=== PATIENT | female | born 1945 | race Caucasian/White ===

== ENCOUNTER 2024-07-15 10:34 | Emergency (ER) | payer OTHER ==
[2024-07-15] MEDS ORDERED: ACETAMINOPHEN 500 MG TAB ONE ×2 (11:16→11:21)
--- NOTE | 2024-07-15 12:20 | RAD REPORT ---
EXAM: Knee Left 2 View INDICATION: Fall COMPARISON: None FINDINGS: No acute fracture. Left knee orthoplasty without hardware complication. No significant knee effusion. No significant focal degenerative changes. Other: N/A IMPRESSION: No acute osseous abnormality involving the imaged knee.
--- NOTE | 2024-07-15 12:20 | RAD REPORT ---
EXAM: Knee Right 2 View INDICATION: Fall COMPARISON: None FINDINGS: No acute fracture. Right knee arthroplasty. No hardware complication. No significant knee effusion. No significant focal degenerative changes. Other: N/A IMPRESSION: No acute osseous abnormality involving the imaged knee.
--- NOTE | 2024-07-15 12:20 | RAD REPORT ---
EXAMINATION: Shoulder Left 2+ Views CLINICAL INDICATION: Female, 78 years old. Fall COMPARISON: No prior exam. FINDINGS: No acute fracture. No malalignment/dislocation. Moderate left AC joint degenerative changes with subacromial spurring. Mild left glenohumeral joint d egenerative changes. Other: n/a IMPRESSION: No acute osseous abnormality.
--- NOTE | 2024-07-15 12:21 | RAD REPORT ---
EXAMINATION: Wrist Left 2 View VIEWS: Two views CLINICAL INDICATION: Female, 78 years old. Fall COMPARISON: No prior exam. IMPRESSION: No acute fracture. No dislocation. No significant focal degenerative changes. Ulnar minus variance.
--- NOTE | 2024-07-15 12:21 | RAD REPORT ---
EXAMINATION: Ankle Right 2 View CLINICAL INDICATION: Female, 78 years old. Fall COMPARISON: No prior exam. FINDINGS: No acute fracture. No malalignment/dislocation. Plantar dorsal aspect calcaneal spurs. Mild spurring at the medial and lateral ankle joint. Other: n/a IMPRESSION: No acute osseous abnormality.
--- NOTE | 2024-07-15 12:21 | RAD REPORT ---
EXAMINATION: Ankle Left 2 View CLINICAL INDICATION: Female, 78 years old. Fall COMPARISON: No prior exam. FINDINGS: No acute fracture. No malalignment/dislocation. Plantar and dorsal aspect calcaneal spurs. Other: n/a IMPRESSION: No acute osseous abnormality.
--- NOTE | 2024-07-15 12:29 | RAD REPORT ---
EXAMINATION: C Spine Wo Con CLINICAL INDICATION: Female, 78 years old. PAIN TECHNIQUE: Axial CT images through the cervical spine were obtained without intravenous contrast. Sag ittal and coronal reformatted images were created from the data set. One or more of the following dose reduction techniques were used: Automated exposure control, adjustment of the mA and/or kV accor ding to patient size, and/or iterative reconstruction. Unless otherwise specified, incidental findings do not require dedicated imaging follow-up. [id number]. COMPARISON: No prior exam. FINDINGS: ALIGNMENT: Trace anterolisthesis of C4 on C5 and retrolisthesis of C5 on C6. BONE: Vertebral body heights are maintained. No aggressive osseous lesions. DEGENERATIVE: Multilevel cervical spondylosis with evidence of bilateral neural foraminal narrowing. No high grade central spinal stenosis. At least moderate neural foraminal narrowing is present at C4-5 on the left, C6-7 on the left, and C5-6 and C6-7 on the right. Mild central spinal stenosis is C 5-6. SOFT TISSUE: No significant abnormalities in the soft tissue of the neck. The visualized lung apices are clear. IMPRESSION: No acute cervical spine abnormalities. Cervical spondylosis.
--- NOTE | 2024-07-15 13:07 | ER ---
Nurse's Notes [facility] Name: Daisha Melgar Age: 78 yrs Sex: Female : 1945 Arrival Date: 07/15/2024 Time: 10:34 Bed 14 Private MD: Diagnosis: Fall (on) (from) unspecified stairs and steps;Pain in left wrist;Pain in left knee;Pain in right knee Presentation: 07/15 10:54 Chief complaint: Patient states: Fell forward one step. Complaining of pain to neck, cm10 bilateral legs and arms. Pt arrived ambulatory with steady gait. Coronavirus screen: Client denies travel out of the [place] in the last 14 days. Ebola Screen: Patient denies travel to an Ebola-affected area in the 21 days before illness onset. Initial Sepsis Screen: Does the patient meet any 2 criteria? No. Patient's initial sepsis screen is negative. Does the patient have a suspected source of infection? No. Patient's initial sepsis screen is negative. Risk Assessment: Do you want to hurt yourself or someone else? Patient reports no desire to harm self or others. Onset of symptoms was July 15, 2024. 10:54 Method Of Arrival: Ambulatory cm10 10:54 Acuity: EVI 3 cm10 Triage Assessment: 10:56 General: Appears in no apparent distress. comfortable, Behavior is calm, cooperative. cm10 Pain: Complains of pain in left arm, right leg, left leg and neck Pain currently is 7 out of 10 on a pain scale. Neuro: No deficits noted. Level of Consciousness is awake, alert, obeys commands, Oriented to person, place, time, situation, Appropriate for age. Respiratory: No deficits noted. Airway is patent Respiratory effort is even, unlabored, Respiratory pattern is regular, symmetrical. Musculoskeletal: Range of motion: intact in all extremities. Historical: - Allergies: 10:52 Codeine; cm10 - Home Meds: 10:52 Lasix 20 mg Oral tablet 1 tab daily for edema [Active]; methocarbamol 500 mg Oral cm10 tablet 3 times per day as needed [Active]; omeprazole 20 mg Oral tablet, delayed release (enteric coated) [Active]; - PMHx: 10:56 GERD; cm10 - PSHx: 10:52 Knee; cm10 - Immunization history:: Adult Immunizations unknown. - Infectious Disease History:: Denies. - Social history:: Smoking status: unknown. Screenin:57 [facility] ED Fall Risk Assessment (Adult) History of falling in the last 3 months, cm10 including since admission Yes- single mechanical fall (1 pt) Confusion or Disorientation No (0 pts) Intoxicated or Sedated No (0 pts) Impaired Gait No (0 pts) Mobility Assist Device Used No (0 pt) Altered Elimination No (0 pt) Score/Fall Risk Level 0 - 2 = Low Risk Oriented to surroundings, Maintained a safe environment, Hourly rounding (assess needs \T\ fall precautionary measures) done. Abuse screen: Denies threats or abuse. Denies injuries from another. Nutritional screening: No deficits noted. Tuberculosis screening: No symptoms or risk factors identified. Assessment: 13:02 Reassessment: Patient appears in no apparent distress at this time. Patient and/or cm10 family updated on plan of care and expected duration. Pain level reassessed. Patient is alert, oriented x 3, equal unlabored respirations, skin warm/dry/pink. Patient states symptoms have improved. Vital Signs: 10:54 BP 148 / 63; Pulse 87; Resp 15; Temp 98.4; Pulse Ox 97% on R/A; Weight 86.18 kg; Height cm10 5 ft. 4 in. ; Pain 7/10; 13:00 BP 154 / 78; Pulse 63; Resp 15; Pulse Ox 99% ; cm10 10:54 Body Mass Index 32.61 (86.18 kg, 162.56 cm) cm10 10:54 Pain Scale: Adult cm10 ED Course: 10:39 Patient arrived in ED. al6 10:41 Catalina Ryan MD is Attending Physician. gb1 10:42 Attending Physician role handed off by Catalina Ryan MD tw7 10:42 Javier Craig MD is Attending Physician. tw7 10:51 Judi Bess, JOSE is Primary Nurse. cm10 10:56 Triage completed. cm10 10:57 Arm band placed on right wrist. Patient placed in an exam room, on a stretcher. cm10 10:57 Patient has correct armband on for positive identification. Placed in gown. Bed in low cm10 position. Call light in reach. Side rails up X 1. Pulse ox on. NIBP on. 12:02 Wrist Left (2 View) XRAY In Process Unspecified. EDMS 12:02 Shoulder Left (2 View) XRAY In Process Unspecified. EDMS 12:02 Knee Left 2 View XRAY In Process Unspecified. EDMS 12:02 Knee Right 2 View XRAY In Process Unspecified. EDMS 12:02 Ankle Left 2 View XRAY In Process Unspecified. EDMS 12:02 Ankle Right 2 View XRAY In Process Unspecified. EDMS 12:02 C Spine W/O Contrast In Process Unspecified. EDMS 13:02 No provider procedures requiring assistance completed. Patient did not have IV access cm10 during this emergency room visit. 13:03 Provided Education on: Follow-up instructions. cm10 Administered Medications: 11:29 Drug: Acetaminophen PO 1000 mg PO once Route: PO; cm10 13:03 Follow up: Response: No adverse reaction cm10 Medication: 10:57 VIS not applicable for this client. cm10 Outcome: 13:03 Discharged to home ambulatory, with significant other, cm10 13:03 Condition: good 13:03 Discharge instructions given to patient, Instructed on discharge instructions, follow up and referral plans. Demonstrated understanding of instructions, follow-up care, 13:06 Discharge ordered by MD. eason 13:14 Patient left the ED. cm10 Signatures: Dispatcher [employer] Judi Mcmullen, JOSE RN cm10 Catalina Ryan MD MD gb1 Sharon Moody al6 Javier Craig MD MD tw7
--- NOTE | 2024-07-15 13:07 | EDPHYS ---
Physician Documentation [facility] Name: Daisha Melgar Age: 78 yrs Sex: Female : 1945 Arrival Date: 07/15/2024 Time: 10:34 Bed 14 Private MD: ED Physician Javier Craig HPI: 07/15 12:39 This 78 yrs old Female presents to ER via Ambulatory with complaints of Fall Injury. tw7 12:39 . 78-year-old female presents to the ED today with complaints of fall. Patient reports tw7 that she was walking up some steps and she tripped. Patient reports pain primarily to her left side after fall. She reports some neck pain, left shoulder pain, bilateral knee pain and bilateral ankle pain. Patient denies head trauma or loss of consciousness. She says she fell on outstretched hands. She states that she has been seen her primary care doctor for generalized paresthesias. She reports compliance with the medications that she has been taking Lasix for bilateral lower extremity swelling.. Historical: - Allergies: 10:52 Codeine; cm10 - Home Meds: 10:52 Lasix 20 mg Oral tablet 1 tab daily for edema [Active]; methocarbamol 500 mg Oral cm10 tablet 3 times per day as needed [Active]; omeprazole 20 mg Oral tablet, delayed release (enteric coated) [Active]; - PMHx: 10:56 GERD; cm10 - PSHx: 10:52 Knee; cm10 - Immunization history:: Adult Immunizations unknown. - Infectious Disease History:: Denies. - Social history:: Smoking status: unknown. ROS: 12:39 Constitutional: Negative for fever, chills, and weight loss, Eyes: Negative for injury, tw7 pain, redness, and discharge, ENT: Negative for injury, pain, and discharge, Neck: Negative for injury, pain, and swelling, Cardiovascular: Negative for chest pain, palpitations, and edema, Respiratory: Negative for shortness of breath, cough, wheezing, and pleuritic chest pain, Abdomen/GI: Negative for abdominal pain, nausea, vomiting, diarrhea, and constipation, Back: Negative for injury and pain, 12:39 Neuro: Negative for headache, weakness, numbness, tingling, and seizure, Psych: Negative for depression, anxiety, suicide ideation, homicidal ideation, and hallucinations, 12:39 MS/extremity: Positive for abrasion, pain, tenderness, Exam: 12:39 Constitutional: This is a well developed, well nourished patient who is awake, alert, tw7 and in no acute distress. Head/Face: Normocephalic, atraumatic. Eyes: Pupils equal round and reactive to light, extra-ocular motions intact. Lids and lashes normal. Conjunctiva and sclera are non-icteric and not injected. Cornea within normal limits. Periorbital areas with no swelling, redness, or edema. ENT: Nares patent. No nasal discharge, no septal abnormalities noted. Tympanic membranes are normal and external auditory canals are clear. Oropharynx with no redness, swelling, or masses, exudates, or evidence of obstruction, uvula midline. Mucous membranes moist. 12:39 Chest/axilla: Normal chest wall appearance and motion. Nontender with no deformity. No lesions are appreciated. Cardiovascular: Regular rate and rhythm with a normal S1 and S2. No gallops, murmurs, or rubs. Normal PMI, no JVD. No pulse deficits. Respiratory: Lungs have equal breath sounds bilaterally, clear to auscultation and percussion. No rales, rhonchi or wheezes noted. No increased work of breathing, no retractions or nasal flaring. Abdomen/GI: Soft, non-tender, with normal bowel sounds. No distension or tympany. No guarding or rebound. No evidence of tenderness throughout. Negative Shahid's. Negative McBurney's Back: No spinal tenderness. No costovertebral tenderness. Full range of motion. 12:39 Neck: External neck: C-spine: Nexus Criteria: there is no tenderness to the posterior midline, the patient is not clinically intoxicated, the patient displays normal alertness, no focal neurologic deficit is appreciated, no distracting injury is present, Left paraspinal muscular tenderness to palpation, 12:39 Musculoskeletal/extremity: Extremities: noted in the lateral aspect of right knee: abrasion, contusion, decreased ROM, noted in the lateral aspect of left knee: abrasion, contusion, decreased ROM, Vital Signs: 10:54 BP 148 / 63; Pulse 87; Resp 15; Temp 98.4; Pulse Ox 97% on R/A; Weight 86.18 kg; Height cm10 5 ft. 4 in. ; Pain 7/10; 13:00 BP 154 / 78; Pulse 63; Resp 15; Pulse Ox 99% ; cm10 10:54 Body Mass Index 32.61 (86.18 kg, 162.56 cm) cm10 10:54 Pain Scale: Adult cm10 MDM: 10:42 Medical Screening Exam initiated tw7 12:51 Data reviewed: vital signs, nurses notes, lab test result(s), EKG, radiologic studies. tw7 ED course: 78-year-old female presents to the ED for further evaluation of fall on outstretched hand. In the ED here patient is well-appearing no acute distress. X-rays performed reveal no acute fracture of the left wrist left shoulder shows no acute osseous abnormality. Left knee shows no acute fracture left knee arthroplasty without hardware complication, no joint effusion. Right knee shows no acute abnormality. Left ankle shows no acute osseous abnormality.. Right ankle shows no acute fracture. CT C-spine performed due to patient having some neck pain reveals no acute cervical spine abnormalities. Patient did not want strong medication in the ED. Patient is given p.o. Tylenol. On reassessment patient reports feeling much better. Patient has no focal weakness of bilateral arm or legs. Patient is able to ambulate with a steady gait. Patient's pain is controlled. Patient reports, having outpatient workup with her primary care doctor ongoing for recurrent falls. Patient discharged close outpatient PCP follow-up.. 07/15 11:25 Order name: Wrist Left (2 View) XRAY; Complete Time: 12:33 07/15 11:25 Order name: Shoulder Left (2 View) XRAY; Complete Time: 12:33 07/15 11:25 Order name: Knee Left 2 View XRAY; Complete Time: 12:33 07/15 11:25 Order name: Knee Right 2 View XRAY; Complete Time: 12:33 07/15 11:25 Order name: Ankle Left 2 View XRAY; Complete Time: 12:33 07/15 11:25 Order name: Ankle Right 2 View XRAY; Complete Time: 12:33 07/15 11:35 Order name: C Spine W/O Contrast; Complete Time: 12:33 tw Administered Medications: 11:29 Drug: Acetaminophen PO 1000 mg PO once Route: PO; cm10 13:03 Follow up: Response: No adverse reaction cm10 Disposition Summary: 07/15/24 13:06 Discharge Ordered Notes: Location: Home tw7 Condition: Stable tw7 Diagnosis - Fall (on) (from) unspecified stairs and steps tw7 - Pain in left wrist tw7 - Pain in left knee tw7 - Pain in right knee tw7 Followup: tw7 - With: Private Physician - When: 1 - 2 days - Reason: Discharge Instructions: - Discharge Summary Sheet tw7 - Musculoskeletal Pain tw7 - Wrist Pain, Adult tw7 Forms: - Medication Reconciliation Form tw7 - Antibiotic Education tw7 - Prescription Opioid Use tw7 - Patient Portal Instructions tw7 - Leadership Thank You Letter tw7 Signatures: Dispatcher [employer] EDJudi Marinelli RN RN cm10 Javier Craig MD MD tw7 Corrections: (The following items were deleted from the chart) 11:25 11:25 Shoulder Left 2 View+RAD.RAD.BRZ ordered. EDMS EDMS 11:25 11:25 Knee Left 2 View+RAD.RAD.BRZ ordered. EDMS EDMS 11:25 11:25 Knee Right 2 View+RAD.RAD.BRZ ordered. EDMS EDMS 11:25 11:25 Ankle Left 2 View+RAD.RAD.BRZ ordered. EDMS EDMS
[2024-07-15 14:13] VITALS: TEMP 98.4
[2024-07-15 14:15] VITALS: BP 154/78; O2SAT 99
== END 2024-07-15 13:14 | disposition home or self-care (01) ==
LOC: ER 10:34
DX: M25.532 Pain in left wrist (principal); M25.562 Pain in left knee; M25.561 Pain in right knee; M54.2 Cervicalgia; M25.512 Pain in left shoulder; W10.9XXA Fall (on) (from) unspecified stairs and steps, initial encounter
CPT/HCPCS: 72125; 99283